=== PATIENT | female | born 1955 | race African-American/Black ===

== ENCOUNTER 2020-07-14 07:07 | Outpatient (CLI) | payer MEDICARE | END 2020-07-14 07:08 | disposition home or self-care (01) | LOC: CSHCT 07:07 | PROVIDERS: ATTEND Family Medicine | DX: E27.8 Other specified disorders of adrenal gland (principal); D25.9 Leiomyoma of uterus, unspecified; K57.90 Diverticulosis of intestine, part unspecified, without perforation or abscess without bleeding | CPT/HCPCS: 74178; 82565 ==

== ENCOUNTER 2021-10-03 09:22 | Outpatient (CLI) | payer MEDICARE | END 2021-10-03 09:23 | disposition home or self-care (01) | LOC: CSHMAMMO 09:22 | PROVIDERS: ATTEND Family Medicine | DX: Z13.820 Encounter for screening for osteoporosis (principal) | CPT/HCPCS: 77080 ==

== ENCOUNTER 2022-08-04 09:01 | Outpatient (CLI) | payer MEDICARE | END 2022-08-04 09:02 | disposition home or self-care (01) | LOC: CSHMAMMO 09:01 | PROVIDERS: ATTEND Family Medicine | DX: Z12.31 Encounter for screening mammogram for malignant neoplasm of breast (principal); Z80.3 Family history of malignant neoplasm of breast; Z98.890 Other specified postprocedural states | CPT/HCPCS: 77063; 77067 ==

== ENCOUNTER 2022-08-18 08:45 | Outpatient (CLI) | payer MEDICARE | END 2022-08-18 08:46 | disposition home or self-care (01) | LOC: CSHMAMMO 08:45 | PROVIDERS: ATTEND Family Medicine | DX: N63.11 Unspecified lump in the right breast, upper outer quadrant (principal); N64.89 Other specified disorders of breast | CPT/HCPCS: 76642; 77065; G0279 ==

== ENCOUNTER 2024-02-29 07:57 | Outpatient (CLI) | payer MEDICARE ==
[2024-02-29] MEDS ORDERED: Iopamidol 300 61% 100 ML VIAL FS ONE (14:26)
== END 2024-02-29 07:58 | disposition home or self-care (01) ==
LOC: CSHCT 07:57
PROVIDERS: ATTEND Internal Medicine Hematology & Oncology
DX: C54.1 Malignant neoplasm of endometrium (principal); E27.8 Other specified disorders of adrenal gland
CPT/HCPCS: 71260; 74177

== ENCOUNTER 2025-02-03 07:25 | Outpatient (CLI) | payer MEDICARE ==
[2025-02-03] MEDS ORDERED: Iopamidol 300 61% 100 ML VIAL FS ONE (11:04)
== END 2025-02-03 07:26 | disposition home or self-care (01) ==
LOC: CSHCT 07:25
PROVIDERS: ATTEND Internal Medicine Hematology & Oncology
DX: C54.1 Malignant neoplasm of endometrium (principal)
CPT/HCPCS: 71260; 74177; Q9967